=== PATIENT | female | born 1965 | race Caucasian/White ===

== ENCOUNTER 2020-11-07 17:47 | Emergency (ER) | payer OTHER ==
[~2020-11-07] VITALS: Ht 167.6 cm; Wt 67.1 kg
--- NOTE | 2020-11-07 18:16 | NUR ---
RATOPRINTER: PT AMBULATORY TO ROOM FROM LOBBY
[2020-11-07] MEDS ORDERED: METOCLOPRAMIDE 5 MG/ML, 2ML ONE (18:55)
[2020-11-07] MEDS ORDERED: KETOROLAC 30 MG/1 ML ONE (18:55)
[2020-11-07] MEDS ORDERED: SODIUM CHLORIDE 0.9% 1,000 ML IV ONE (19:00)
[2020-11-07] MEDS ORDERED: KETOROLAC 30 MG/1 ML IVPush ONE (19:00)
[2020-11-07] MEDS ORDERED: METOCLOPRAMIDE 5 MG/ML, 2ML IVPush ONE (19:00)
[2020-11-07] MEDS ORDERED: SODIUM CHLORIDE FLUSH 10ML SYR IVF ONE (19:00)
[2020-11-07 19:09] LABS: MICROSCOPIC AUTO
[2020-11-07 19:11] LABS: ALANINE AMINOTRANSFERASE 32 U/L (12-78); ALBUMIN 4.4 g/dL (3.4-5.0); ANION GAP 6 mmol/L (5-15); CALCIUM 9.5 mg/dL (8.5-10.1); CHLORIDE 108 mmol/L (98-107)
[2020-11-07 19:14] LABS: ALKALINE PHOSPHATASE 82 U/L (45-117); BILIRUBIN,TOTAL 0.6 mg/dL (0.2-1.0); CREATININE 0.77 mg/dL (0.55-1.02); TOTAL PROTEIN 8.2 g/dL (6.4-8.2)
[2020-11-07 19:17] LABS: BASOPHILS % (AUTO) 1 % (0-1); EOSINOPHILS % (AUTO) 4 % (1-7); LYMPHOCYTES % (AUTO) 36 % (22-44); MEAN CORPUSCULAR HEMOGLOBIN 27.2 pg (27.0-34.8); MEAN CORPUSCULAR HGB CONC 33.8 g/dL (32.4-35.8); MEAN PLATELET VOLUME 7.7 fL (7.4-10.4); MONOCYTES % (AUTO) 11 % (2-9); NEUTROPHILS % (AUTO) 49 % (42-75); PLATELET COUNT 264 x10^3/uL (130-400); RED BLOOD COUNT 5.75 x10^6/uL (3.82-5.3); RED CELL DISTRIBUTION WIDTH 14.2 % (9.6-15.2)
[2020-11-07 19:29] LABS: MD NO
[2020-11-07] MEDS ORDERED: OMNIPAQUE 350 MG/ML, 75ML BOTTLE ONE (19:49)
[2020-11-07 20:08] VITALS: BP 139/91
== END 2020-11-07 20:36 | disposition home or self-care (01) ==
LOC: ED 20:15
DX: R51.9 Headache, unspecified (principal); R53.1 Weakness; R11.0 Nausea
CPT/HCPCS: 36415; 70470; 80053; 81001; 85025; 87086; 96361; 96374; 96375; 99285; J1885; J2765; J7030; Q9967